=== PATIENT | male | born 1955 | race Caucasian/White ===

== ENCOUNTER 2017-08-10 17:16 | Emergency (ER) | payer BC, OTHER ==
--- NOTE | 2017-08-10 17:49 | EDM.PDOC ---
<OfficerKael - Last Filed: 08/10/17 17:46> ED HPI GENERAL MEDICAL PROBLEM - General Chief Complaint: Lower Extremity Injury/Pain Stated Complaint: RIGHT LEG CALF SWELLING/PAIN Time Seen by Provider: 08/10/17 17:41 Source of Information: Reports: Patient, RN Notes Reviewed History Limitations: Reports: No Limitations - History of Present Illness INITIAL COMMENTS - FREE TEXT/NARRATIVE: 61-year-old gentleman presents emergency department today with complaint of right calf pain, he injured himself about a week ago does have a fairly large bruise in the calf but today the pain got significantly worse, he is not short of breath no chest pain he is concerned about a blood clot - Related Data Allergies Allergy/AdvReac Type Severity Reaction Status Date / Time venom-honey bee Allergy Swelling Verified 12/28/15 16:08 [bee venom (honey bee)] Home Meds: Home Meds Aspirin 81 mg PO DAILY 07/23/16 [History] Copper/Ginseng/Saw Palm/Zinc [Prostate Health Formula] 1 tab PO DAILY 07/23/16 [ History] EPINEPHrine [Epipen 2-Victoriano] 0.3 ml IM ASDIRECTED PRN 07/23/16 [History] Flaxseed Oil [Linseed Oil] 1 tab PO DAILY 07/23/16 [History] Red Yeast Rice Extract [Red Yeast Rice] 1 tab PO DAILY 07/23/16 [History] Triamcinolone Acetonide [Triamcinolone Acetonide 0.1% Crm] 1 applic TOP BID [History] Past Medical History HEENT History: Reports: Impaired Vision Other HEENT History: wears glasses Gastrointestinal History: Reports: GERD - Infectious Disease History Infectious Disease History: Reports: Chicken Pox - Past Surgical History GI Surgical History: Reports: Colonoscopy, EGD, Esophageal Dilatation Musculoskeletal Surgical History: Reports: Shoulder Surgery Social & Family History - Family History Cardiac: Reports: Heart Failure, [place] Endocrine/Metabolic: Reports: Diabetes, Type I, Diabetes, type II Oncologic: Reports: Pancreatic - Tobacco Use Smoking Status *Q: Never Smoker Years of Tobacco use: 8 Used Tobacco, but Quit: Yes Month Tobacco Last Used: 1981 Second Hand Smoke Exposure: No - Caffeine Use Caffeine Use: Reports: Coffee, Tea - Alcohol Use Days Per Week of Alcohol Use: 7 Number of Drinks Per Day: 2 Total Drinks Per Week: 14 - Recreational Drug Use Recreational Drug Use: No Review of Systems - Review of Systems Review Of Systems: See Below Constitutional: Reports: No Symptoms Respiratory: Reports: No Symptoms Cardiovascular: Reports: No Symptoms Musculoskeletal: Reports: Leg Pain Skin: Reports: Bruising Neurological: Reports: No Symptoms ED EXAM, GENERAL - Physical Exam Exam: See Below Exam Limited By: No Limitations General Appearance: Alert, WD/WN, No Apparent Distress Respiratory/Chest: No Respiratory Distress, Lungs Clear, Normal Breath Sounds, No Accessory Muscle Use, Chest Non-Tender Cardiovascular: Regular Rate, Rhythm, No Murmur Extremities: Leg Pain (Right), Increased Warmth, Redness, Other (Bruising) Course - Vital Signs Last Recorded V/S: Last Vital Signs Temp 97 F 08/10/17 17:32 Pulse 86 08/10/17 17:32 Resp 16 08/10/17 17:32 BP 159/81 H 08/10/17 17:32 Pulse Ox 97 08/10/17 17:32 - Orders/Labs/Meds Orders: Active Orders 24 hr Category Date Time Status VL Duplex Lwr Ext Veins Ltd Rt [US] Stat Exams 08/10/17 17:45 Taken Labs: Laboratory Tests 08/10/17 08/10/17 Range/Units 17:58 17:58 WBC 8.2 (4.5-11.0) K/uL RBC 5.18 (4.30-5.90) M/uL Hgb 15.7 H (12.0-15.0) g/dL Hct 45.2 (40.0-54.0) % MCV 87 (80-98) fL MCH 30 (27-31) pg MCHC 35 (32-36) % Plt Count 212 (150-400) K/uL Neut % (Auto) 74 H (36-66) % Lymph % (Auto) 19 L (24-44) % Bullitt % (Auto) 6 (2-6) % Eos % (Auto) 1 L (2-4) % Baso % (Auto) 0 (0-1) % Sodium 140 (140-148) mmol/L Potassium 3.5 L (3.6-5.2) mmol/L Chloride 103 (100-108) mmol/L Carbon Dioxide 27 (21-32) mmol/L Anion Gap 13.5 (5.0-14.0) mmol/L BUN 19 H (7-18) mg/dL Creatinine 1.0 (0.8-1.3) mg/dL Est Cr Clr Drug Dosing 77.57 mL/min Estimated GFR (MDRD) > 60 (>60) Glucose 92 (74-106) mg/dL Calcium 9.1 (8.5-10.1) mg/dL Departure - Departure Disposition: Home, Self-Care 01 Clinical Impression: Leg hematoma Qualifiers: Encounter type: initial encounter Laterality: right Qualified Code(s): S80.11XA - Contusion of right lower leg, initial encounter - Discharge Information Instructions: Hematoma, [id number] Referrals: Matthias Duran MD [Primary Care Provider] - Forms: ED Department Discharge Care Plan Goals: Wrap for comfort, ibuprofen or naproxen should help and ice and elevation tonight. Heat can be started tomorrow, increase activity as tolerated and recheck in 2-3 days if not healing satisfactorily. <Paolo Townsend - Last Filed: 08/10/17 21:36> Course - Re-Assessments/Exams Free Text/Narrative Re-Assessment/Exam: 08/10/17 19:04 Care turned over from Officer pending an ultrasound of the right gastrocnemius area of the leg. The result is a localized hematoma. A three-inch David wrap was applied to the leg, I encouraged him to ice it tonight and start heating tomorrow and increase activity as tolerated. Ibuprofen or naproxen should help. Departure - Departure Time of Disposition: 19:21 Condition: Good
[2017-08-10 17:50] VITALS: BP 159/81
--- NOTE | 2017-08-12 09:36 | US ---
VL Duplex Lwr Ext Veins Ltd Rt INDICATION: Pain and swelling TECHNIQUE: The deep venous system of right leg imaged, including the common femoral, deep femoral, goldman perficial femoral, popliteal, and where visualized, calf veins. Imaging included duplex, compressio n, and augmentation. COMPARISON: None FINDINGS: There is no evidence of deep venous thrombosis. Other incidental findings: 3.4 x 1.7 x 0.8 cm complex fluid collection right upper medial calf. This is nonspecific and differential diagnosis includes hematoma and abscess.
== END 2017-08-10 19:22 | disposition home or self-care (01) ==
LOC: JP.ED 17:16
DX: S80.11XA Contusion of right lower leg, initial encounter (principal); Z91.030 Bee allergy status; Z79.899 Other long term (current) drug therapy; Z88.2 Allergy status to sulfonamides; X58.XXXA Exposure to other specified factors, initial encounter
CPT/HCPCS: 36415; 80048; 85025; 93971-26; 93971-RT; 99284-25

== ENCOUNTER 2017-11-13 06:28 | Day surgery (SDC) | payer OTHER ==
[2017-11-13] MEDS ORDERED: Lactated Ringers 1,000 ML IV SCH (07:00)
[2017-11-13] MEDS ORDERED: Propofol 200 MG/20 ML SDV ONE (08:37)
[2017-11-13] MEDS ORDERED: Midazolam 1 MG/ML 2 ML SDV ONE (08:37)
[2017-11-13] MEDS ORDERED: fentaNYL 100 MCG/2 ML SDV ONE (08:37)
[2017-11-13 10:01] VITALS: BP 130/82
--- NOTE | 2017-11-14 07:26 | OR ---
DATE OF PROCEDURE: 11/13/2017 PREOPERATIVE DIAGNOSIS: Colon cancer screening. POSTOPERATIVE DIAGNOSIS: Diverticulosis. PROCEDURE: Colonoscopy to the cecum. SURGEON: Magdaleno Whitman MD ANESTHESIA: IV anesthesia with monitored anesthesia care. INDICATION: This 62-year-old white male is referred for a colonoscopy for colon cancer screening. He says his last colonoscopic exam was done between 10 and 11 years ago. I counseled him for the procedure, including risks and alternatives, and he gave his informed consent to proceed. DESCRIPTION OF PROCEDURE: The patient was placed in the left lateral decubitus position. IV anesthesia was administered by the Anesthesia Service. Time-out was held. A rectal exam was performed, which was unremarkable. The flexible video Olympus colonoscope was introduced through his anus, up his rectum, and out his colon, all the way to the cecum. Once the cecum was reached, the scope was slowly withdrawn, examining the mucosa throughout. En route to the cecum, we encountered a few scattered left-sided diverticula. There was no bleeding or inflammation associated with any of them. As the scope was removed from the cecum, no additional lesions were noted. The scope was retroflexed in the rectum with the distal rectum appearing unremarkable. The scope was straightened and removed. He tolerated the procedure well. Magdaleno Whitman MD /[id number]
== END 2017-11-13 10:24 | disposition home or self-care (01) ==
LOC: JP.SDS 06:28
PROVIDERS: ATTEND Surgery
DX: Z12.11 Encounter for screening for malignant neoplasm of colon (principal); K57.30 Diverticulosis of large intestine without perforation or abscess without bleeding; Z91.030 Bee allergy status
CPT/HCPCS: J2250; J2704; J3010; J7120

== ENCOUNTER 2021-07-25 06:44 | Day surgery (SDC) | payer MEDICARE, BC ==
[2021-07-25] MEDS ORDERED: Acetaminophen 500 MG Tab PO ONE (06:45)
[2021-07-25] MEDS ORDERED: methylPREDNISolone Sodium Succinate 125 MG/2 ML SDV IVPUSH ONE (07:00)
[2021-07-25] MEDS ORDERED: Dextrose 5%-Lactated Ringers 1,000 ML IV SCH (07:15)
[2021-07-25] MEDS ORDERED: ceFAZolin 2 GM in Premix Bag 1 BAG IV ONE (07:45)
[2021-07-25] MEDS ORDERED: fentaNYL 100 MCG/2 ML SDV ONE (07:46)
[2021-07-25] MEDS ORDERED: Midazolam 1 MG/ML 2 ML SDV ONE (07:46)
[2021-07-25] MEDS ORDERED: Lidocaine 0.5% 50 ML SDV ONE (07:46)
[2021-07-25] MEDS ORDERED: Propofol 200 MG/20 ML SDV ONE (07:46)
[2021-07-25] MEDS ORDERED: Lidocaine 1% with EPINEPHrine 1:100,000 50 ML MDV ONE (07:56)
[2021-07-25] MEDS ORDERED: Ketorolac 30 MG/ML SDV IM ONE (10:23)
[2021-07-25] MEDS ORDERED: traMADol 50 MG Tab PO SCH (11:00)
[2021-07-25 11:46] VITALS: BP 143/88; PULSE 66
--- NOTE | 2021-07-26 11:32 | OR ---
DATE OF PROCEDURE: 07/25/2021 SURGEON: Rupesh Vivar MD PREOPERATIVE DIAGNOSIS: Left carpal tunnel syndrome. POSTOPERATIVE DIAGNOSIS: Left carpal tunnel syndrome. OPERATION PERFORMED: Left carpal tunnel release ([id number]). ANESTHESIA: IV block plus sedation. INDICATION FOR PROCEDURE: A 65-year-old presenting with bilateral carpal tunnel syndrome with the left being more symptomatic than the right. After preoperative evaluation and discussion, he wished to proceed with a carpal tunnel release. Potential risks of the procedure including bleeding, infection, injury to the median nerve and/or its branches, and problems with incomplete relief of symptoms postoperatively were all discussed, and the patient wishes to proceed. DETAILS OF PROCEDURE: The patient was taken to the operating room and placed in a supine position. After IV sedation was administered, an IV block was placed affecting the left forearm and hand, and those areas were prepped and draped. A standard carpal tunnel incision was then made and carried down through the skin and subcutaneous tissue. The transverse carpal ligament was then identified and divided with an ulnar orientation to the underlying median nerve. This was extended onto the palmar hand, particularly in the more distal aspect of the transverse carpal ligament, this was quite thickened tension. Upon division of the transverse carpal ligament somewhat in a medial direction and proximal direction was well, the nerve was inspected and found to be intact. The subcutaneous tissue was then approximated with some 4-0 Vicryl stitch and the skin with a 5- 0 Prolene stitch. A dressing was applied. The patient was taken to the recovery room in satisfactory condition. There were no evident complications. Rupesh Vivar MD Job #: [id number]
== END 2021-07-25 11:49 | disposition home or self-care (01) ==
LOC: JP.SDS 06:44
PROVIDERS: ATTEND Surgery
DX: G56.03 Carpal tunnel syndrome, bilateral upper limbs (principal); Z91.030 Bee allergy status
CPT/HCPCS: 64721; A9270; J0690; J1885; J2250; J2704; J2930; J3010; J7121; 88304